=== PATIENT | female | born 1940 | race Caucasian/White ===

== ENCOUNTER → 2016-06-26 | Outpatient (CLI) | payer OTHER | LOC: BMCIMAGING 10:42 | DX: Z12.31 Encounter for screening mammogram for malignant neoplasm of breast (principal) | CPT/HCPCS: G0202 ==

== ENCOUNTER → 2016-07-07 | Outpatient (CLI) | payer OTHER | LOC: BMCIMAGING 12:08 | DX: Z12.39 Encounter for other screening for malignant neoplasm of breast (principal); R92.2 Inconclusive mammogram | CPT/HCPCS: G0206 ==

== ENCOUNTER → 2017-06-09 | Outpatient (CLI) | payer OTHER | LOC: BMCIMAGING 12:35 | PROVIDERS: ATTEND Orthopaedic Surgery | DX: M25.562 Pain in left knee (principal); M25.561 Pain in right knee; M25.762 Osteophyte, left knee; M25.761 Osteophyte, right knee; M17.0 Bilateral primary osteoarthritis of knee ==

== ENCOUNTER → 2017-06-30 | Outpatient (CLI) | payer OTHER | LOC: BMCIMAGING 12:08 | PROVIDERS: ATTEND Internal Medicine | DX: Z12.31 Encounter for screening mammogram for malignant neoplasm of breast (principal) ==

== ENCOUNTER 2017-07-10 13:10 | Emergency (ER) | payer OTHER ==
--- NOTE | 2017-07-10 13:34 | EDPHY ---
HPI/HX/ROS/PE/MDM Narrative: CHIEF COMPLAINT: Left-sided rib and abdominal pain secondary to fall HPI: The patient is a 77 y/o female with a history of Von Willebrand's, complaining of left-sided rib and abdominal pain secondary to tripping on a rock and falling while running yesterday. When she returned home after the run the pain persisted and has not improved since. The pain is exacerbated while breathing. She became concerned that the pain was not improving, so she decided to present to the emergency department today. Takes Vitamin K to mitigate the symptoms associated with Von Willebrand's. Denies urinary complaints, chest pain, paresthesias, numbness, fever. REVIEW OF SYSTEMS: Aside from elements discussed in the HPI, a comprehensive 10-point review of systems was reviewed and is negative. PMH: Von Willebrand SOCIAL HISTORY: Lives in [place], retired, single PHYSICAL EXAM: General: Patient is alert, in no acute distress. ENT: Eyes are normal to inspection. ENT inspection normal. Neck: Normal inspection. Full range of motion. Respiratory: No respiratory distress. Breath sounds normal bilaterally. Cardiovascular: Regular rate and rhythm. Strong peripheral pulses. Normal cap refill. Abdomen: Left lower costal margin and LUQ tenderness to palpation. There are no peritoneal signs. There are normal bowel sounds. Back: Normal to inspection. No tenderness to palpation. Skin: Normal color. No rash. Warm and dry. Extremities: Normal appearance. Full range of motion. Neuro: Oriented x3. Normal motor function. Normal sensory function. ED Course: 1345: I discussed having a CT vs. X-ray preformed, the patient would prefer to have an abdominopelvic CT. 1448: I reviewed patient's abdominopelvic CT. Patient's symptoms are consistent with left-sided rib contusions. 1450: Reassessed patient and discussed laboratory findings. 1515: Spoke with radiologist, he reports that the patient's CT is negative for acute findings. 1529: Reassessed patient and discussed imaging findings. Return precautions provided; patient is comfortable with this plan. - Data Points Imaging Results: Imaging Impressions Abdomen CT 07/10/17 14:02 Impression: No source for left upper quadrant pain identified. No posttraumatic abnormality identified. Concordant results were discussed with Dr. Armijo. General information for patients regarding this examination can be found at [email or web address]. If you have questions or comments about this report, please contact me at (hospital) or [phone] ([facility]). Imaging: Discussed imaging studies w/ call worker Radiologist, I viewed and interpreted images myself Laboratory Results: Laboratory Results 07/10/17 13:50 07/10/17 13:50 07/10/17 07/10/17 07/10/17 13:59 13:50 13:50 WBC RBC Hgb POC Hgb 15.0 gm/dL gm/dL (12.6-16.3) Hct POC Hct 44 % % (38-47) MCV MCH MCHC RDW Plt Count MPV Neut % (Auto) Lymph % (Auto) [place] % (Auto) Eos % (Auto) Baso % (Auto) Nucleat RBC Rel Count Absolute Neuts (auto) Absolute Lymphs (auto) Absolute Monos (auto) Absolute Eos (auto) Absolute Basos (auto) Absolute Nucleated RBC Immature Gran % Immature Gran # PT 12.7 SEC SEC (12.0-15.0) INR 0.93 (0.83-1.16) APTT 23.7 SEC SEC (23.0-38.0) POC Sodium 140 mEq/L mEq/L (135-145) Sodium 140 mEq/L mEq/L (135-145) POC Potassium 3.8 mEq/L mEq/L (3.3-5.0) Potassium 4.2 mEq/L mEq/L (3.5-5.2) POC Chloride 104 mEq/L mEq/L (97-110) Chloride 105 mEq/L mEq/L (97-110) Carbon Dioxide 25 mEq/l mEq/l (22-31) Anion Gap 10 mEq/L mEq/L (8-16) POC BUN 11 mg/dL mg/dL (7-23) BUN 11 mg/dL mg/dL (7-23) Creatinine 0.7 mg/dL mg/dL (0.6-1.0) POC Creatinine 0.6 mg/dL mg/dL (0.6-1.0) Estimated GFR > 60 Glucose 86 mg/dL mg/dL (70-100) POC Glucose 91 mg/dL mg/dL (70-100) Calcium 9.8 mg/dL mg/dL (8.5-10.4) 07/10/17 13:50 WBC 4.41 10^3/uL 10^3/uL (3.80-9.50) RBC 4.61 10^6/uL 10^6/uL (4.18-5.33) Hgb 14.4 g/dL g/dL (12.6-16.3) POC Hgb Hct 41.6 % % (38.0-47.0) POC Hct MCV 90.2 fL fL (81.5-99.8) MCH 31.2 pg pg (27.9-34.1) MCHC 34.6 g/dL g/dL (32.4-36.7) RDW 13.0 % % (11.5-15.2) Plt Count 160 10^3/uL 10^3/uL (150-400) MPV 10.3 fL fL (8.7-11.7) Neut % (Auto) 69.9 % % (39.3-74.2) Lymph % (Auto) 21.3 % % (15.0-45.0) [place] % (Auto) 8.6 % % (4.5-13.0) Eos % (Auto) 0.0 % L % (0.6-7.6) Baso % (Auto) 0.0 % L % (0.3-1.7) Nucleat RBC Rel Count 0.0 % % (0.0-0.2) Absolute Neuts (auto) 3.08 10^3/uL 10^3/uL (1.70-6.50) Absolute Lymphs (auto) 0.94 10^3/uL L 10^3/uL (1.00-3.00) Absolute Monos (auto) 0.38 10^3/uL 10^3/uL (0.30-0.80) Absolute Eos (auto) 0.00 10^3/uL L 10^3/uL (0.03-0.40) Absolute Basos (auto) 0.00 10^3/uL L 10^3/uL (0.02-0.10) Absolute Nucleated RBC 0.00 10^3/uL 10^3/uL (0-0.01) Immature Gran % 0.2 % % (0.0-1.1) Immature Gran # 0.01 10^3/uL 10^3/uL (0.00-0.10) PT INR APTT POC Sodium Sodium POC Potassium Potassium POC Chloride Chloride Carbon Dioxide Anion Gap POC BUN BUN Creatinine POC Creatinine Estimated GFR Glucose POC Glucose Calcium Point of Care Test Results: 07/10/17 13:59 POC Sodium 140 POC Potassium 3.8 POC Chloride 104 POC BUN 11 POC Creatinine 0.6 POC Glucose 91 General Time Seen by Provider: 07/10/17 13:30 Initial Vital Signs: Initial Vital Signs Temperature (C) 36.6 C 07/10/17 13:10 Heart Rate 54 L 07/10/17 13:10 Respiratory Rate 18 07/10/17 13:10 Blood Pressure 142/95 H 07/10/17 13:10 O2 Sat (%) 97 07/10/17 13:10 O2 Delivery Mode Room Air Allergies/Adverse Reactions: gluten Allergy (Verified 07/10/17 13:20) Sulfa (Sulfonamide Antibiotics) Allergy (Verified 07/10/17 13:20) Home Medications: Medication Instructions Recorded Restasis Opht Drops(*) 07/10/17 Supplements 07/10/17 Triostat 07/10/17 Departure - Departure Disposition: Home, Routine, Self-Care Clinical Impression: Contusion of rib on left side Qualifiers: Encounter type: initial encounter Qualified Code(s): S20.212A - Contusion of left front wall of thorax, initial encounter Condition: Good Instructions: Rib Contusion (ED) Additional Instructions: Followup with your primary doctor within 72 hours for reevaluation. Return to the emergency department for fever, worsening pain, shortness of breath or difficulty breathing, abdominal pain, blood in urine or other concerns. Referrals: Shelly Aldrich MD [Primary Care Provider] - As per Instructions Report Scribed for: Ismael Armijo Report Scribed by: Antoinette Mccoy Date of Report: 07/10/17 Time of Report: 13:34 Physician Review and Approval Statement: Portions of this note were transcribed by an ED scribe. I personally performed the history, physical exam, and medical decision making; and confirm the accuracy of the information in the transcribed note.
[2017-07-10 14:02] LABS: PLATELET COUNT 160 10^3/uL (150-400)
[2017-07-10 14:08] LABS: INR 0.93 (0.83-1.16); PROTIME(PATIENT) 12.7 SEC (12.0-15.0)
[2017-07-10] MEDS ORDERED: IOPAMIDOL (ISOVUE-300) 100 ML BTL ONE (14:23)
[2017-07-10 15:34] VITALS: BP 131/79
== END 2017-07-10 15:39 | disposition home or self-care (01) ==
DX: S20.212A Contusion of left front wall of thorax, initial encounter (principal); W01.0XXA Fall on same level from slipping, tripping and stumbling without subsequent striking against object, initial encounter; Y99.8 Other external cause status; Y93.02 Activity, running
CPT/HCPCS: 74177; 99285; Q9967; 82947-QW

== ENCOUNTER 2017-07-19 16:56 | Emergency (ER) | payer OTHER ==
--- NOTE | 2017-07-19 17:10 | EDPHY ---
H & P Stated Complaint: pain whole l side/blood in stool Time Seen by Provider: 07/19/17 17:09 - Personal History Current Tetanus/Diphtheria Vaccine: Yes - Medical/Surgical History Hx Asthma: No Hx Chronic Respiratory Disease: No Hx Diabetes: No Hx Cardiac Disease: No Hx Renal Disease: No Hx Cirrhosis: No Hx Alcoholism: No Hx HIV/AIDS: No Hx Splenectomy or Spleen Trauma: No Other PMH: unknown type of clotting disorder - Social History Smoking Status: Never smoked Constitutional: Initial Vital Signs Temperature (C) 36.5 C 07/19/17 17:00 Heart Rate 62 07/19/17 17:00 Respiratory Rate 16 07/19/17 17:00 Blood Pressure 164/84 H 07/19/17 17:00 O2 Sat (%) 96 07/19/17 17:00 O2 Delivery Mode Room Air Allergies/Adverse Reactions: gluten Allergy (Verified 07/19/17 16:59) Sulfa (Sulfonamide Antibiotics) Allergy (Verified 07/19/17 16:59) Home Medications: Medication Instructions Recorded Restasis Opht Drops(*) 07/10/17 Supplements 07/10/17 Tirosint 07/19/17 Medical Decision Making - Diagnostics Imaging Results: Imaging Impressions Chest CT 07/19/17 17:25 Impression: 1. Acute anterior left 5th and 6th rib fractures, with age-indeterminate buckle deformities of the anterior left 4th and 7th ribs. 2. Clear lungs. No pulmonary hemorrhage, effusion, or pneumothorax. 3. Right nephrolithiasis. Findings discussed with Emergency Department physician, Tony Hernandez M.D., at July 19, 2017 at 1814. Imaging: Discussed imaging studies w/ call manager Radiologist, I viewed and interpreted images myself ED Course/Re-evaluation: CHIEF COMPLAINT: Rectal bleeding, left-sided pain HISTORY OF PRESENT ILLNESS: The patient is a 77 y/o female with Von Willebrand disease complaining of persistent left-sided thorax after a fall last week and rectal bleeding onset today. On 07/10, 9 days ago, she fell while trail running and landed hard on her left side onto a rock. She came into the ED and was evaluated after the fall with an abdomen/pelvis CT, which was negative. She was discharged home with rib contusion care instructions. She has continued to have constant pain along her left lateral side since then and says, "there's an ongoing pressure back there and I'm thinking lungs." Additionally, this morning she had a loose stool with associated "bright red" blood floating in the water. The stool was brown in color and she denies black, tarry, or maroon-colored stool. No weakness, lightheadedness, syncope, or other abnormal bleeding. REVIEW OF SYSTEMS: A 10 point review of systems was performed and is negative with the exception of the elements mentioned in the history of present illness. PHYSICAL EXAM: HR, BP, O2 Sat, RR. Temp noted General Appearance: Alert, well hydrated, appropriate, and non-toxic appearing. Head: Atraumatic without scalp tenderness or obvious injury Eyes: Pupils equal, round, reactive to light and accommodation, EOMI, no trauma , no injection. Nose: Atraumatic, no rhinorrhea, clear. Throat: Mucus membranes moist. Neck: Supple Respiratory: No retractions, no distress, no wheezes, and no accessory muscle use. Lungs are clear to auscultation bilaterally. Cardiovascular: Regular rate and rhythm, no murmurs, rubs, or gallops. Good capillary refill all extremities. Chest: Tenderness along left lateral ribs. Gastrointestinal: Abdomen is soft, nontender, non-distended, no masses, no rebound, no guarding, no peritoneal signs. Rectal: Internal hemorrhoidal pad inflamed with active bleeding Musculoskeletal: Normal active ROM of all extremities, atraumatic. Neurological: Alert, appropriate, and interactive. Nonfocal neuro exam. Skin: No rashes, good turgor, no nodules on palpation. Past medical history: Von Willebrand disease Past surgical history: Noncontributory Family history: Noncontributory Social history: Avid runner. DIAGNOSTICS/PROCEDURES/CRITICAL CARE TIME: Chest CT: anterior axillary 5th and 6th rib fractures on left without lung trauma. Procedure: Anoscopy Indication: Rectal bleeding Risks, benefits, and alternative procedures were discussed and the patient consented to proceed. The patient was placed in the left lateral decubitus position. The anoscope was placed in the rectum with the introducer in place without difficulty. The introducer was easily withdrawn. Findings: internal hemorrhoids with active bleeding The patient tolerated the procedure well. The procedure was performed by myself. DIFFERENTIAL DIAGNOSIS: The differential diagnosis for the patient's pain included but was not limited to intracranial injury, long bone and pelvic bone fractures, spinal injury, intra-abdominal injury, and intra-thoracic injury. The differential diagnosis for the patient's lower GI bleeding included but was not limited to diverticulosis, tumor, AVM, hemorrhoid, and upper GI Bleed. MEDICAL DECISION MAKING: This is a 77 y/o female with Von Willebrand's disease who presents with persistent left-sided pain along her lateral ribs and upper abdomen secondary to a mechanical fall 9 days ago and additional developed bright red rectal bleeding today. She has tenderness along her left lateral ribs and during her initial ED evaluation for the fall an abdominal CT was negative. She does not have evidence of anemia or significant blood loss and she describes rectal bleeding opposed to dark stools or blood mixed in with her stool. Plan for chest CT to evaluate for intrathoracic trauma and anoscopy. She declines pain medication. Anoscopy reveals internal hemorrhoids with active bleeding. CT shows 5th and 6th left anterior-axillary rib fractures without lung trauma. She will be discharged with standard rib fracture and internal hemorrhoid care and follow up instructions. Referred to GI. Return precautions discussed. Departure - Departure Disposition: Home, Routine, Self-Care Clinical Impression: Internal bleeding hemorrhoids Rib fractures Qualifiers: Encounter type: initial encounter Rib fracture type: multiple ribs Fracture type: closed Laterality: left Qualified Code(s): S22.42XA - Multiple fractures of ribs, left side, initial encounter for closed fracture Condition: Good Instructions: How to Use an Incentive Spirometer (ED), Hemorrhoids (ED), Rib Fracture (ED) Additional Instructions: 1. Follow up with GI this week regarding your internal hemorrhoids. 2. Take Tylenol as directed on the packaging as needed for rib fracture pain. It can take several weeks for rib fractures to heal. 3. Use incentive spirometer as directed. 4. Follow up with your primary care provider for unimproved symptoms. 5. Return to the ED for severe pain, difficulty breathing, worsening bleeding, lightheadedness, fainting, or other worsening of condition. Referrals: Shelly Aldrich MD [Primary Care Provider] - As per Instructions Edgardo Lemon MD [Medical Doctor] - As per Instructions Report Scribed for: Tony Hernandez Report Scribed by: Kelin Bautista Date of Report: 07/19/17 Time of Report: 18:02
[2017-07-19 18:46] VITALS: BP 139/84
== END 2017-07-19 18:53 | disposition home or self-care (01) ==
DX: S22.42XA Multiple fractures of ribs, left side, initial encounter for closed fracture (principal); K64.8 Other hemorrhoids; W18.39XA Other fall on same level, initial encounter; Y99.8 Other external cause status; Y93.02 Activity, running